=== PATIENT | female | born 1965 | race Caucasian/White ===

== ENCOUNTER 2017-02-27 19:12 | Emergency (ER) | payer OTHER ==
--- NOTE | 2017-02-27 20:46 | RADIOLOGY REPORT (SQ) ---
EXAM DESCRIPTION: WRIST RIGHT 3 VIEWS COMPLETED DATE/TIME: 02/27/2017 8:12 pm REASON FOR STUDY: DIRECT BLOW COMPARISON: None. NUMBER OF VIEWS: Three views. TECHNIQUE: AP, lateral, and oblique radiographic images acquired of the right wrist. LIMITATIONS: None. FINDINGS: MINERALIZATION: Normal. BONES: No acute fracture or dislocation. No worrisome bone lesions. Normal alignment. SOFT TISSUES: No soft tissue swelling. No foreign body. OTHER: No other significant finding. IMPRESSION: No fracture identified. TECHNICAL DOCUMENTATION: JOB ID: [id number] [employer]- All Rights Reserved
[2017-02-27] MEDS ORDERED: HYDROCODONE/ACETAMINOPHEN 5-325 MG 6 TAB/DSPK PO PRN (22:27)
--- NOTE | 2017-02-27 22:34 | ER Document Report ---
ED Hand/Wrist Injury - General Chief Complaint: Wrist Injury Stated Complaint: WRIST INJURY Mode of Arrival: Ambulatory Information source: Patient TRAVEL OUTSIDE OF THE [place] IN LAST 30 DAYS: No - HPI Injury to: Wrist Onset: Yesterday Where: Home Timing: Constant Quality of pain: Achy Severity: Moderate Context: Blow Notes: Patient arrives with complaints of right wrist pain. She states that she had a bag of ice that had frozen solid in her freezer. She attempted to break the ice up by hitting it with her right hand and injured the ulnar aspect of her right wrist. She has had pain to this area since this occurred. She complains of some tingling to the ulnar aspect of her hand. No numbness. She has full range of motion. No redness. She denies any fevers. She denies any nausea, vomiting, diarrhea. She denies any other injuries or complaints at this time. Past Medical History - Social History Smoking Status: Unknown if Ever Smoked Family History: Reviewed & Not Pertinent Patient has suicidal ideation: No Patient has homicidal ideation: No Renal/ Medical History: Denies: Hx Peritoneal Dialysis Review of Systems - Review of Systems -: Yes All other systems reviewed and negative Physical Exam - Vital signs Vitals: Temp Pulse Resp BP Pulse Ox 98.6 F 64 20 138/79 H 100 02/27/17 19:59 02/27/17 19:59 02/27/17 19:59 02/27/17 19:59 02/27/17 19:59 - Notes Notes: GENERAL: alert, cooperative, nontoxic, no distress. HEAD: normocephalic, atraumatic EYES: conjunctiva pink without discharge, no external redness or swelling. EARS: no external swelling, no external redness NOSE: atraumatic, no external swelling MOUTH/THROAT: mucous membranes moist and pink NECK: soft, supple, full range of motion, no meningismus. CHEST: no distress, lungs clear and equal throughout. No wheezing, rales, rhonchi. CARDIAC: regular rate and rhythm, no murmur, normal capillary refill, normal pulses. BACK: full range of motion, no CVA tenderness. EXTREMITIES: full range of motion of all extremities. No redness, no swelling. Patient has some tenderness to the right distal ulna. No deformity. She is full range of motion of the fingers and hand. No redness. No sign of compartment syndrome. Normal pulse and sensation. NEURO: alert and oriented 3, no focal deficits, full range of motion of all extremities. PYSCH: appropriate mood, affect. Patient is cooperative. SKIN: pink, warm, dry, no rash. Course - Re-evaluation Re-evalutation: 02/27/17 22:32 Patient is nontoxic appearing with stable vitals. Patient injured her right wrist by attempting to break up ice that had frozen solid and a bag of ice. This happened last night. She is now having difficulty resting and sleeping. She has no sign of infection. She is neurovascularly intact. No sign of compartment syndrome. X-ray shows no acute fracture. Patient will be discharged home in a cockup splint to be worn as needed for comfort. She will be discharged home with a 6 pack of [place]. She was instructed to take her 800 mg ibuprofen every 8 hours to help with pain and inflammation. Wear splint as needed for comfort. Ice the sore area. Follow-up if not better in 1 week, sooner for increased pain, fever, redness, swelling, any further concerns. The patient is noted to have elevated blood pressure during today's emergency department visit. The patient was informed of this finding. The patient was instructed that this may be related to pre-hypertension and requires further evaluation with a primary care provider. The patient has no hypertensive symptoms at this time. The patient's emergency department workup and current diagnosis were explained to the patient and or family. Follow-up instructions were provided. Medications if prescribed were discussed. Instructions for when to return to the emergency department including specific worrisome symptoms were discussed with the patient and/or family. - Vital Signs Vital signs: Temp Pulse Resp BP Pulse Ox 98.6 F 64 20 138/79 H 100 02/27/17 19:59 02/27/17 19:59 02/27/17 19:59 02/27/17 19:59 02/27/17 19:59 Procedures - Immobilization Right wrist Pre-Proc Neuro Vasc Exam: Normal Immobilizer type: Cock-up Performed by: EDUARDA Post-Proc Neuro Vasc Exam: Normal Discharge - Discharge Clinical Impression: Contusion of right wrist, initial encounter Condition: Stable Disposition: HOME, SELF-CARE Instructions: Contusion ([facility]), Wrist Sprain ([facility]) Additional Instructions: Take medications as prescribed. Wear splint as needed for comfort. Rest, ice, elevate your injury. Follow-up if not better in 1 week, sooner for increased pain, fever, redness, swelling, weakness, any further concerns. Your blood pressure was elevated during today's visit. Have this rechecked with your doctor. The medication you were prescribed today may cause drowsiness. Do not drive or operate heavy machinery while taking this medication. Forms: Elevated Blood Pressure Referrals: [facility], [facility] [Provider Group] - Follow up as needed
[2017-02-27 23:22] VITALS: BP 117/75
== END 2017-02-27 23:22 | disposition home or self-care (01) ==
LOC: ER 19:12
DX: S60.211A Contusion of right wrist, initial encounter (principal); W22.8XXA Striking against or struck by other objects, initial encounter; Y93.89 Activity, other specified; Y92.009 Unspecified place in unspecified non-institutional (private) residence as the place of occurrence of the external cause; R20.2 Paresthesia of skin; R03.0 Elevated blood-pressure reading, without diagnosis of hypertension
CPT/HCPCS: 99283; 73110; L3908 ×2